=== PATIENT | female | born 1965 | race American Indian/Alaskan Native ===

== ENCOUNTER 2017-03-05 14:39 | Emergency (ER) | payer OTHER ==
[2017-03-05 15:45] LABS: Basophils % (Auto) 0.3 % (0.0-1.8); Eosinophils % (Auto) 0.1 % (0.0-4.3); Hematocrit 43.8 % (30.3-42.9); Hemoglobin 14.5 gm/dl (10.1-14.3); Mean Corpuscular HGB Conc 33 % (30-34); Mean Corpuscular Hemoglobin 29 pg (28-32); Mean Corpuscular Volume 88 fl (79-97); Platelet Count 270 K/mm3 (140-440); Red Blood Count 4.99 M/mm3 (3.65-5.03); Red Cell Distribution Width 14.4 % (13.2-15.2); White Blood Count 10.9 K/mm3 (4.5-11.0)
[2017-03-05 16:06] LABS: Alanine Aminotransferase 28 units/L (7-56); Albumin/Globulin Ratio 1.2 %; Alkaline Phosphatase 48 units/L (35-129); Anion Gap 17 mmol/L; BUN/Creatinine Ratio 11.66; Blood Urea Nitrogen 7 mg/dL (7-17); Calcium 8.8 mg/dL (8.4-10.2); Carbon Dioxide 25 mmol/L (22-30); Chloride 97.4 mmol/L (98-107); Glucose 136 mg/dL (65-100); Lipase 29 units/L (13-60); Potassium 3.8 mmol/L (3.6-5.0); Sodium 136 mmol/L (137-145); Total Protein 7.3 g/dL (6.3-8.2)
[2017-03-05] MEDS ORDERED: ZOFRAN IV ONE (23:20)
[2017-03-05] MEDS ORDERED: NACL 0.9% 1000 ML 1,000 ML IV ONE (23:20)
[2017-03-05] MEDS ORDERED: PROTONIX IV ONE (23:20)
[2017-03-05] MEDS ORDERED: MORPHINE IV ONE (23:20)
--- NOTE | 2017-03-05 23:27 | Emergency Department Report ---
HPI - General Chief Complaint: Abdominal Pain Time Seen by Provider: 03/05/17 23:01 - HPI HPI: This is a 51-year-old -[place] female presents to the emergency department from home with complaint of a 24-hour history of mid upper abdominal pain with some nausea, vomiting and diarrhea. The patient also has noticed some bright red blood in her stool with her diarrhea episodes. She denies any known fever but has some intermittent chills and sweats. The patient was diagnosed with Helicobacter pylori at her PCPs office, Dr. Workman at [facility], with a urease breath test. She's been taking the antibiotics and PPI treatment since. She has a history of tubal ligation, hysterectomy and hernia repair. ED Past Medical Hx - Past Medical History Additional medical history: H.PYLORI - Surgical History Hx Cholecystectomy: Yes Additional Surgical History: HERNIA REPAIR. TUBAL LIGATION. HYSTERECTOMY - Social History Smoking Status: Never Smoker Substance Use Type: None - Medications Home Medications: Home Medications Medication Instructions Recorded Confirmed Last Taken Type Ondansetron [Zofran Odt] 4 mg PO Q8H PRN #10 tab.rapdis 03/06/17 Unknown Rx Pantoprazole [Protonix] 40 mg PO QDAY #20 tablet 03/06/17 Unknown Rx ED Review of Systems ROS: Stated complaint: ABD PAIN/BLOODY STOOL/VOMITING Other details as noted in HPI Comment: All other systems reviewed and negative Constitutional: denies: chills, fever Eyes: denies: eye pain, eye discharge, vision change ENT: denies: ear pain, throat pain Respiratory: denies: cough, shortness of breath, wheezing Cardiovascular: denies: chest pain, palpitations Gastrointestinal: abdominal pain, nausea, vomiting, diarrhea Genitourinary: denies: urgency, dysuria, discharge Musculoskeletal: denies: back pain, joint swelling, arthralgia Skin: denies: rash, lesions Neurological: denies: headache, weakness, paresthesias Physical Exam - Physical Exam Vital Signs: Vital Signs 03/05/17 03/05/17 15:24 22:05 Temperature 98.5 F 98.0 F Pulse Rate 74 72 Respiratory 18 12 Rate Blood Pressure 146/92 142/92 O2 Sat by Pulse 100 100 Oximetry Physical Exam: GENERAL: The patient is well-developed well-nourished. HEENT: Normocephalic. Atraumatic. Extraocular motions are intact. Patient has moist mucous membranes. Pupils equal reactive to light bilaterally. NECK: Supple. Trachea is midline. CHEST/LUNGS: Clear to auscultation. There is no respiratory distress noted. HEART/CARDIOVASCULAR: Regular. There is no tachycardia. There is no gallop rub or murmur. ABDOMEN: Abdomen is soft. There is some generalized tenderness to palpation of the abdomen. No guarding rebound tenderness. Patient has normal bowel sounds. There is no abdominal distention. SKIN: There is no rash. There is no edema. There is no diaphoresis. NEURO: The patient is awake, alert, and oriented. The patient is cooperative. The patient has no focal neurologic deficits. The patient has normal speech. MUSCULOSKELETAL: There is no tenderness or deformity. There is no limitation range of motion. There is no evidence of acute injury. RECTAL: There is a nonthrombosed hemorrhoid at the 6 o'clock position externally. No gross blood. There was not much stool to test but what was tested was negative for guaiac testing. ED Course Vital Signs 03/05/17 03/05/17 15:24 22:05 Temperature 98.5 F 98.0 F Pulse Rate 74 72 Respiratory 18 12 Rate Blood Pressure 146/92 142/92 O2 Sat by Pulse 100 100 Oximetry ED Medical Decision Making - Lab Data Result diagrams: 03/05/17 15:32 03/05/17 15:32 - Radiology Data Radiology results: image reviewed interpreted by me: Abdominal x-ray shows nonobstructive nonspecific bowel gas. - Medical Decision Making 51-year-old female presents with a 24-hour history of some abdominal discomfort nausea, vomiting, diarrhea and some rectal bleeding. Patient has some mild tenderness to palpation that is generalized. There is no gross blood seen on rectal examination. Nonthrombosed external hemorrhoid. Abdominal x-ray shows nonspecific nonobstructive bowel gas. The labs are mostly unremarkable. She was given some IV fluid, per Ethan Zoan and pain medication. Upon reevaluation she is feeling much improved. She appears safe for discharge home. She will be given a referral for gastroenterology as she will need a colonoscopy in the near future to rule out malignancy as a source of her rectal bleeding. It will also help with her history of Helicobacter pylori. She will return to the ER if any worsening of her symptoms or any acute distress. - Differential Diagnosis Helicobacter pylori, hemorrhoid, malignancy, diverticulitis Critical Care Time: No Critical care attestation.: If time is entered above; I have spent that time in minutes in the direct care of this critically ill patient, excluding procedure time. ED Disposition Clinical Impression: Rectal bleeding, Rectal bleeding Nausea and vomiting Qualifiers: Vomiting type: unspecified Vomiting Intractability: non-intractable Qualified Code(s): R11.2 - Nausea with vomiting, unspecified Diarrhea Qualifiers: Diarrhea type: unspecified type Qualified Code(s): R19.7 - Diarrhea, unspecified Abdominal pain Qualifiers: Abdominal location: generalized Qualified Code(s): R10.84 - Generalized abdominal pain Disposition: DISCHARGED TO HOME OR SELFCARE Is pt being admited?: No Condition: Stable Instructions: Abdominal Pain (ED), Rectal Bleeding (ED), Acute Nausea and Vomiting (ED), Acute Diarrhea (ED) Additional Instructions: Please follow-up with your primary care doctor in the next few days if possible. I have given you a referral for a local warehouse analyst, Dr. Harrison, to follow up regarding your rectal bleeding as you may need a colonoscopy in the near future. Return to the emergency department with any worsening of your symptoms or any acute distress. Prescriptions: Ondansetron [Zofran Odt] 4 mg PO Q8H PRN #10 tab.rapdis PRN Reason: Nausea Pantoprazole [Protonix] 40 mg PO QDAY #20 tablet Referrals: DAVID ROSS MD [Primary Care Provider] - 3-5 Days THERON HARRISON MD [Staff Physician] - 3-5 Days Time of Disposition: 02:56
[2017-03-06 02:49] LABS: Bilirubin,Urine NEG (Negative); Blood,Urine SM (Negative); Ketones,Urine 20 mg/dL (Negative); Leukocyte Esterase,Urine SM (Negative); Nitrite,Urine NEG (Negative); Protein,Urine <15 mg/dL mg/dL (Negative); Urobilinogen,Urine < 2.0 mg/dL (<2.0)
[2017-03-06 02:55] VITALS: BP 137/64
--- NOTE | 2017-03-06 08:51 | XRay Report ---
ABDOMEN TWO VIEWS: 03/06/17 CLINICAL: Abdominal pain. COMPARISON: FINDINGS: Supine upright views demonstrate a normal bowel gas pattern. There is some radiopaque particulate matter in the sigmoid colon and rectum. No distended bowel and no air-fluid levels. No mass or suspicious calcifications. Surgical clips in the right upper quadrant. Phleboliths in the pelvis. The bones and soft tissues are normal. IMPRESSION: Negative abdomen status post cholecystectomy.
== END 2017-03-06 03:15 | disposition home or self-care (01) ==
LOC: ED 14:39
DX: K62.5 Hemorrhage of anus and rectum (principal); R11.2 Nausea with vomiting, unspecified; R19.7 Diarrhea, unspecified; R10.84 Generalized abdominal pain; Z90.49 Acquired absence of other specified parts of digestive tract; Z98.51 Tubal ligation status; Z90.710 Acquired absence of both cervix and uterus
CPT/HCPCS: 36415; 74020; 80053; 81001; 83690; 85025; 96361; 96374; 96375; 99284; C9113; J2270; J2405; J7030